=== PATIENT | female | born 1940 ===

== ENCOUNTER 2016-12-04 07:30 | Day surgery (SDC) | payer MEDICARE, MEDICAID ==
[2016-11-29 14:20] VITALS: BMI 22.8
[~2016-12-04 07:30] MED LIST: Ciprofloxacin 0.3% OPTH SOLN OD SCH; Cyclopentolate 1% Opth (2 ml) OD SCH; Flurbiprofen 0.03% Opht SOLN OD SCH; Lactated Ringer's 500 ML IV ONE; Phenylephrine 2.5% Opht Soln OD SCH; Tropicamide 1% Opht SOLUTION OD SCH
[2016-12-04] MEDS ORDERED: Povidone Iodine Ophthalmic 5% Soln ONE (07:37)
[2016-12-04] MEDS ORDERED: Chondroitin/Hyaluronate Opth Syringe KIT (0.55 ml-0.5 ml) IO ONE (07:38)
[2016-12-04] MEDS ORDERED: Tobramycin/Dexamethasone OPHT OINT ONE (07:38)
[2016-12-04] MEDS ORDERED: Hyaluronidase Human, Recombi 150 U/ML VIAL ONE (07:38)
[2016-12-04] MEDS ORDERED: Lidocaine 2% Inj (20ml) ONE (07:38)
[2016-12-04] MEDS ORDERED: Tobramycin/Dexamethasone (Tobradex) Opth Sol (2.5 ml) ONE (07:38)
[2016-12-04] MEDS ORDERED: Carbachol 0.01% IO ONE (07:38)
[2016-12-04] MEDS ORDERED: Tetracaine 0.5% Ophth (OR ONLY) ONE (07:38)
[2016-12-04] MEDS ORDERED: Propofol 10 mg/ml Inj (20 ML) ONE (09:44)
[2016-12-04] MEDS ORDERED: Lactated Ringer's 1,000 ML IV ONE (10:07)
[2016-12-04 10:58] VITALS: RESP 18; TEMP 99; O2SAT 100
[2016-12-04 11:11] VITALS: BP 136/70; PULSE 66
--- NOTE | 2016-12-18 13:06 | PCM.OP ---
Operative Report - Operative Report Date of Surgery/Procedure: 12/04/16 Procedure/Operation Description: The surgery was performed on: Right eye. Please use my standard cataract with implant dictation
--- NOTE | 2016-12-20 09:01 | OP ---
PROCEDURE DATE: 12/04/2016 PREOPERATIVE DIAGNOSIS: CATARACT, RIGHT EYE. POSTOPERATIVE DIAGNOSIS: CATARACT, RIGHT EYE. OPERATIVE PROCEDURE: CATARACT EXTRACTION WITH IMPLANT, RIGHT EYE. ANESTHESIA TYPE: Local, standby. COMPLICATIONS: None. PROCEDURE: Local anesthesia was achieved using a mixture of *% lidocaine and Amphadase. The patient was then prepped and draped in the usual sterile fashion for ophthalmic surgery. Betadine drops were placed into the eye. A lid speculum was used and a sideport incision was made using a *5 degree blade. Viscoelastic was used to fill the anterior chamber and a 2.7 millimeter slit blade was used to create a surgical opening. Additional viscoelastic was placed into the eye and a capsulorrhexis was performed. Hydrodissection and delineation were then carried out. Phacoemulsification of the nucleus was performed with ease and cortical cleanup was achieved without difficulty. The capsular bag was refilled using viscoelastic and a posterior chamber lens was inserted through the existing wound and placed into the capsular bag and easily centered. All viscoelastic was then aspirated from the eye and Miochol was instilled for good symmetric pupillary constriction. The sideport wound was hydrated as necessary and a good watertight closure was observed at the conclusion of the case. A TobraDex soaked collagen shield was then placed over the eye. The lid speculum was removed. TobraDex ointment was placed onto the eye and a patch and shield were placed. The patient tolerated the procedure well. Charles August MD
== END 2016-12-04 11:45 | disposition home or self-care (01) ==
LOC: C.SDS 07:30
PROVIDERS: ATTEND Ophthalmology
DX: H26.9 Unspecified cataract (principal)
CPT/HCPCS: 66984; J2704; J3470; J7120; V2632

== ENCOUNTER 2017-01-01 11:19 | Day surgery (SDC) | payer MEDICARE, MEDICAID ==
[2016-11-29 14:20] VITALS: BMI 22.8
[~2017-01-01 11:19] MED LIST changes: +Chondroitin/Hyaluronate Opth Syringe KIT (0.55 ml-0.5 ml) IO ONE; +Hyaluronidase Human, Recombi 150 U/ML VIAL ONE; +Lidocaine 2% Inj (20ml) ONE; +Povidone Iodine Ophthalmic 5% Soln ONE; +Tetracaine 0.5% Ophth (OR ONLY) ONE
[2017-01-01] MEDS ORDERED: Lactated Ringer's 500 ML IV ONE (12:09)
[2017-01-01] MEDS ORDERED: Propofol 10 mg/ml Inj (20 ML) ONE (12:50)
[2017-01-01] MEDS: Tobramycin/Dexamethasone (Tobradex) Opth Sol (2.5 ml) ONE ×2 (13:22→13:31)
[2017-01-01] MEDS: Carbachol 0.01% IO ONE ×2 (13:22→13:28)
[2017-01-01] MEDS: Tobramycin/Dexamethasone OPHT OINT ONE ×2 (13:23→13:31)
[2017-01-01 13:54] VITALS: RESP 18; O2SAT 100
[2017-01-01 16:06] VITALS: BP 128/63; PULSE 54; TEMP 97
--- NOTE | 2017-01-05 10:36 | OP ---
PROCEDURE DATE: 01/01/2017 CATARACT EXTRACTION WITH IMPLANT ON 01/01/2017 PREOPERATIVE DIAGNOSIS: CATARACT LEFT EYE. POSTOPERATIVE DIAGNOSIS: CATARACT LEFT EYE. OPERATIVE PROCEDURE: CATARACT EXTRACTION WITH IMPLANT LEFT EYE. ANESTHESIA TYPE: Local, standby. ANESTHESIOLOGIST: COMPLICATIONS: None. PROCEDURE: Local anesthesia was achieved using a mixture of 1% lidocaine and Amphadase. The patient was then prepped and draped in the usual sterile fashion for ophthalmic surgery. Betadine drops were placed into the eye. A lid speculum was used and a sideport incision was made using a 15 degree blade. Viscoelastic was used to fill the anterior chamber and a 2.7 millimeter slit blade was used to create a surgical opening. Additional viscoelastic was placed into the eye and a capsulorrhexis was performed. Hydrodissection and delineation were then carried out. Phacoemulsification of the nucleus was performed with ease and cortical cleanup was achieved without difficulty. The capsular bag was refilled using viscoelastic and a posterior chamber lens was inserted through the existing wound and placed into the capsular bag and easily centered. All viscoelastic was then aspirated from the eye and Miochol was instilled for good symmetric pupillary constriction. The sideport wound was hydrated as necessary and a good watertight closure was observed at the conclusion of the case. A TobraDex soaked collagen shield was then placed over the eye. The lid speculum was removed. TobraDex ointment was placed onto the eye and a patch and shield were placed. The patient tolerated the procedure well. Charles August MD
== END 2017-01-01 14:47 | disposition home or self-care (01) ==
LOC: C.SDS 11:19
PROVIDERS: ATTEND Ophthalmology
DX: H26.9 Unspecified cataract (principal)
CPT/HCPCS: 66984; J2704; J3470; J7120; V2632